=== PATIENT | male | born 1960 | race Two or more races ===

== ENCOUNTER → 2018-08-27 | Outpatient (CLI) | payer SELFPAY, BC ==
[~2018-08-27] MED LIST: IOHEXOL 100 ML; METOPROLOL 5 MG INJ IV; SOD CHLORIDE 0.9% 100 ML
== END | disposition home or self-care (01) ==
LOC: C/S 13:26
DX: R07.9 Chest pain, unspecified (principal)
CPT/HCPCS: 75571; 75574